=== PATIENT | male | born 2005 | race Caucasian/White ===

== ENCOUNTER 2025-05-18 04:22 | Emergency (ER) | payer BC, SELFPAY ==
[2025-05-18 04:23] VITALS: BP 100/59; BMI 21.7
--- NOTE | 2025-05-18 04:52 | ED.GENMED ---
History of Present Illness
General
Chief Complaint: Alcohol Problem
Source: patient
Exam Limitations: none
Time Seen by Provider: 05/18/25 04:46
Nursing documentation reviewed up to this point in time: agreed with
History of Present Illness
History of Present Illness:
19-year-old male came in from EMS apparently was sitting outside the police station for a few hours he would inside to use the restroom passed out apparently concerned that he was intoxicated, brought here. He is cooperative, watching TV, does
admit to drinking alcohol earlier tonkurtis tells me he was golfing and working today and got tired
Past History
Past History
ED Past Medical History: None
Social History
Tobacco: Non-smoker
Alcohol: Occasional
Drug: None
Personal: Single
Living: with family
Review of Systems
Review of Systems
All Other Systems: Not applicable
Phy Exam
Physical Exam
Physical Exam:
Physical Exam
General: 19-year-old male watching TV
Neck: No jaundice
Heart: Regular
Lungs: no acute respiratory distress. clear bilaterally
Neuro: alert and oriented. no focal neurological deficits
Skin: no rash
Psychiatric: Dismissive speech a bit pressured but he is cooperative
Extremities: no edema.
Scores
Withdrawal Assessment of Alcohol
Withdrawal Assessment Completed?: No
Course
Vital Signs
Initial and Last Documented VS:
Initial Vital Signs
Temp Pulse Resp BP Pulse Ox
97.4 F 97 22 100/59 99
05/18/25 04:23 05/18/25 04:23 05/18/25 04:23 05/18/25 04:23 05/18/25 04:23
Last Documented Vital Signs
Temp Pulse Resp BP Pulse Ox
97.4 F 97 22 100/59 99
05/18/25 04:23 05/18/25 04:23 05/18/25 04:23 05/18/25 04:23 05/18/25 04:55
MDM/Problems Addressed
Differential Diagnosis Includes:
Intoxication illicit drug use,
MDM/Problems Addressed:
Intoxication
*Pulse Oximetry
SaO2: 99
Oxygen Mode of Delivery: Room air
Patient hypoxic: no
*Critical Care Note
Total Time (30-74mins, 75-104mins- exclusive of procedures): Not Applicable
Update Note
Update Note:
Update 19-year-old male presents with presumed intoxication at the police station here he is cooperative mother is here, requesting an alcohol level,
6:30 AM update patient resting comfortably reviewed with mother alcohol level not typically indicated in this clinical scenario he is more cooperative now after period of sobriety she will take him home
ED Attending Note
-
Portions of this chart may have been created with voice recognition software.� Occasional wrong word or��sound alike� substitutions may have occurred due to the inherent limitations of voice recognition software.
Discharge Plan
Departure
Patient Disposition: Home (Routine Discharge)
Date of Disposition: 05/18/25
Time of Disposition: 06:22
Patient with high blood pressure during this ER visit?: No
Condition: Good
Discharge Problem:
Alcohol intoxication
Instructions: Alcohol poisoning
Prescriptions:
No Action
No Current Medications
0
Referrals:
UNKNOWN - PT DOES,NOT KNOW [Family Provider]
Activity Restrictions/Additional Instructions:
Limit your alcohol use
Interventions
Interventions:
*Risk Screen - Suicide Last Done: 05/18/25 04:23
*General Assessment Last Done: 05/18/25 04:23
*Neglect/Abuse Screening Last Done: 05/18/25 04:23
*ED- Fall Risk Assessment Last Done: 05/18/25 04:23
*ED COVID-19 Vaccine History Last Done: 05/18/25 04:23
ED- Neurological Assessment Last Done: 05/18/25 04:32
ED-Psychological Assessment Last Done: 05/18/25 04:33
Discharge Date and Time
Print Language: [id number]
== END 2025-05-18 06:45 | disposition home or self-care (01) ==
LOC: EMR 04:22
PROVIDERS: EMERGENCY PHYSICIAN Emergency Medicine
DX: F10.129 Alcohol abuse with intoxication, unspecified (principal); Y90.9 Presence of alcohol in blood, level not specified
CPT/HCPCS: 99282